=== PATIENT | male | born 1980 ===

== ENCOUNTER 2020-10-08 17:01 | Emergency (ER) | payer SELFPAY ==
[~2020-10-08] VITALS: Ht 185.4 cm; Wt 93.0 kg
== END 2020-10-08 18:30 | disposition home or self-care (01) ==
LOC: ER 17:01
DX: S91.312A Laceration without foreign body, left foot, initial encounter (principal); W45.8XXA Other foreign body or object entering through skin, initial encounter
CPT/HCPCS: 12001; 99282-25